=== PATIENT | female | born 1975 | race Caucasian/White ===

== ENCOUNTER 2018-08-06 16:10 | Inpatient (IN) ==
[2018-08-06 16:45] LABS: Bilirubin,Urine Negative (Negative); Blood,Urine Negative (Negative); Clarity,Urine Clear (Clear); Color,Urine Yellow (Yellow); Glucose,Urine (UA) Normal (Normal); Ketones,Urine Negative (Negative); Leukocyte Esterase,Urine Trace (Negative); Nitrite,Urine Negative (Negative); PH,Urine 5.5 pH Units (5.0-8.0); Protein,Urine >=300 mg/dL (Neg-Trace); Specific Gravity,Urine >= 1.030 (1.010-1.025); Urobilinogen,Urine Normal (Normal)
[2018-08-06 16:49] LABS: Bacteria,Urine Few per hpf (None-Few); Hyaline Casts,Urine Moderate per lpf (None-Few); Squamous Epithelial Cell,Urine Many per lpf (None-Few); WBC,Urine 15-30 per hpf (0-3)
[2018-08-06 16:58] LABS: Mucus,Urine Few (Few); RBC,Urine 0-3 per hpf (0-3)
[2018-08-06 17:05] LABS: Amphetamine Screen,Urine Negative ng/mL (Cutoff=1000); Barbiturate Screen,Urine Negative ng/mL (Cutoff=200); Benzodiazepines Screen,Urine Positive ng/mL (Cutoff=200); Cannabinoid Screen,Urine Negative ng/mL (Cutoff = 50); Cocaine Screen,Urine Negative ng/mL (Cutoff= 300); Opiate Screen,Urine Negative ng/mL (Cutoff=300); Phencyclidine Screen,Urine Negative ng/mL (Cutoff=25)
--- NOTE | 2018-08-06 17:06 | Emergency Department Note ---
Disposition Clinical Impression: Auditory hallucinations Disposition: Admitted As Inpatient Condition: Good Time of Disposition: 19:16 Psych HPI - General Chief Complaint: ED Psychiatric Symptoms Stated Complaint: SI Time Seen by Provider: 08/06/18 16:26 Source: patient Mode of arrival: ambulatory Limitations: no limitations Nursing Notes Reviewed: Yes Vital Signs Reviewed: Yes - History of Present Illness HPI Narrative: 42-year-old female presents emergency department with reports of command hallucinations. She states over the past 3 to 4 week she is been hearing voices that commander to do certain tasks. Last night they told her to drive through different states which she did through [place] and [place]. She states that have not commanded any thoughts of hurting herself or others. She denies any suicidal or homicidal ideation. She denies any self harm behavior. She states she is not taken any psychiatric medications. She does see a psychiatrist nearby at [facility] 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 Currently she is hearing voices and she states they are telling her that her body is being hacked by her DID. She is also saying that God voices telling her that she is dying. She denies any alcohol use or recreational drug abuse. She does admit to taking Valium. She reports being evaluated here at psychiatry the past. She typically is admitted at the crisis center. - Related Data Home Medications Medication Instructions Recorded Confirmed Levothyroxine [Synthroid] 188 mcg PO 0630 08/06/18 08/06/18 Allergies Allergy/AdvReac Type Severity Reaction Status Date / Time Penicillins Allergy Rash Verified 07/16/18 06:57 NSAIDS (Non-Steroidal AdvReac Hives Verified 07/16/18 06:57 Anti-Inflamma All systems ED: reviewed and negative except as stated. Review of Systems: As Per HPI Constitutional: Denies: fever, chills ENT ED: Denies: congestion Cardiovascular: Denies: chest pain Respiratory: Denies: dyspnea Gastrointestinal: Denies: abdominal pain, nausea Musculoskeletal: Denies: back pain Integumentary: Denies: rash Neurological: Denies: headache Psychiatric: Reports: anxiety, auditory hallucinations. Denies: suicidal thoughts, homicidal thoughts Endocrine: Denies: fatigue Past Medical History - Past Medical History Attestation: Yes The following information was validated with the patient. Source: patient Medical history: Reports: thyroid disease, other Surgical history: Reports: non-contributory Psychiatric history: Reports: anxiety, bipolar, PTSD, prior suicide attempt, previous psychiatric hospitalization, other FLIGHT ATTENDANT RAMP history: Reports: no FLIGHT ATTENDANT RAMP history - Social History Smoking Status: Former smoker Smokeless Tobacco Status: Yes Alcohol use: Reports: none Drug use: Reports: none Physical Exam - General Limitations: no limitations General appearance: alert, in no apparent distress, obese - Head Head exam: atraumatic, normocephalic, normal inspection - Eye Eye exam: Present: normal appearance, PERRL, EOMI - ENT ENT exam: normal exam, normal oropharynx, mucous membranes moist - Neck Neck exam: Present: normal inspection, full ROM, trachea midline - Chest Chest inspection: Present: normal inspection, symmetric chest wall rise - Respiratory Respiratory exam: Present: normal lung sounds bilaterally - Cardiovascular Cardiovascular exam: Present: regular rate, normal rhythm, normal heart sounds - Abdominal Exam Abdominal exam: Present: soft (Obese), Non-Tender. Absent: tenderness, distention, guarding, rebound, rigidity - Extremities Exam Extremities exam: Present: normal inspection, full ROM. Absent: tenderness, pedal edema - Back Exam Back exam: Present: normal inspection, full ROM. Absent: tenderness - Neurological Exam Neurological exam: Present: alert, oriented X3, normal gait - Psychiatric Psychiatric exam: Present: anxious, other (Patient has good insight) - Expanded Psychiatric Exam Expanded psych exam: Present: pressured speech, delusional, auditory hallucinations - Skin Skin exam: Present: warm, dry, intact, normal color Course Course Narrative: Patient presents with command hallucinations. No active suicidal thoughts at this time. No prior history of suicide attempt. Medical clearance and then psychiatric evaluation. - Reevaluation(s) Reevaluation #1: Patient is positive for benzodiazepine. She takes Valium. 1A psychiatry to evaluate the patient for hallucinations and delusions. Time: 17:51 - Consultations Consultation #1: Patient has been evaluated by one a psychiatry and will be admitted here at [facility] to the 1A unit. Impression is auditory hallucination and psychosis. Time: 19:16 Vital Signs Temperature 99.3 F 08/06/18 16:11 Pulse Rate 95 08/06/18 16:11 Respiratory Rate 17 08/06/18 16:11 Blood Pressure 151/87 08/06/18 16:11 O2 Sat by Pulse Oximetry 96 08/06/18 16:11 Temperature 98.2 F 08/07/18 09:00 Pulse Rate 50 08/07/18 09:00 Respiratory Rate 18 08/07/18 09:00 Blood Pressure 163/82 08/07/18 09:00 O2 Sat by Pulse Oximetry 96 08/06/18 16:32 Oxygen Delivery Oxygen Delivery Room Air Psych - MDM Narrative Medical decision making narrative: Patient was discussed with my attending physician who agrees with ED management and final disposition. They independently evaluated the patient. Please refer to their attestation to this encounter for additional information. This note was generated by [employer] recognition software and as a result grammatical or spelling errors may occur using this program. - Medical Records Medical records reviewed: Yes I reviewed the patient's medical records. - Lab Data Lab results reviewed: Yes I reviewed the patient's lab results. Result diagrams: 08/06/18 17:00 08/06/18 17:00 Lab Results 08/06/18 08/06/18 08/06/18 Range/Units 16:35 16:35 16:35 WBC (4.3-11.1) K/mcL RBC (3.82-4.97) M/mcL Hgb (11.5-15.4) g/dL Hct (35.3-44.9) % MCV (83.0-100.0) fL MCH (28.0-33.3) pg MCHC (31.6-35.5) g/dL RDW (11.5-14.5) % Plt Count (140-400) K/mcL MPV (9.4-12.4) fL Immature Gran % (0-4) % Seg Neutrophils % % Lymphocytes % % Monocytes % % Eosinophils % % Basophils % % Neutrophils # (1.6-8.9) K/mcL Lymphocytes # (0.6-4.6) K/mcL Monocytes # (0.0-1.3) K/mcL Eosinophils # (0.0-0.6) K/mcL Basophils # (0.0-0.2) K/mcL Hypochromasia (Not Present) Sodium (136-145) mEq/L Potassium (3.5-5.1) mEq/L Chloride (98-107) mEq/L Carbon Dioxide (23-29) mEq/L BUN (6-20) mg/dL Creatinine (0.60-1.20) mg/dL Est GFR ( Amer) (> 60) Est GFR (Non-Af Amer) (> 60) BUN/Creatinine Ratio (6-26) Glucose (70-105) mg/dL Calculated Osmolality (280-300) Calcium (8.6-10.3) mg/dL Urine Color Yellow (Yellow) Urine Clarity Clear (Clear) Urine pH 5.5 (5.0-8.0) pH Units Ur Specific [place] >= 1.030 H (1.010-1.025) Urine Protein >=300 H (Neg-Trace) mg/dL Urine Glucose (UA) Normal (Normal) mg/dL Urine Ketones Negative (Negative) mg/dL Urine Blood Negative (Negative) Urine Nitrite Negative (Negative) Urine Bilirubin Negative (Negative) Urine Urobilinogen Normal (Normal) mg/dL Ur Leukocyte Esterase Trace H (Negative) Urine Microscopic RBC 0-3 (0-3) per hpf Urine Microscopic WBC 15-30 H (0-3) per hpf Ur Squamous Epith Cells Many H (None-Few) per lpf Urine Bacteria Few (None-Few) per hpf Hyaline Casts Moderate H (None-Few) per lpf Urine Mucus Few (Few) Urine Yeast Test Not Performed Urine Test Negative (Negative) Salicylates (15.0-30.0) mg/dL Urine Opiates Screen Negative (Sbdqhy=473) ng/mL Acetaminophen (10-20) mcg/mL Ur Barbiturates Screen Negative (Xdlsqc=395) ng/mL Ur Phencyclidine Scrn Negative (Cutoff=25) ng/mL Ur Amphetamines Screen Negative (Uwvuiu=0385) ng/mL U Benzodiazepines Scrn Positive H (Shoxlf=772) ng/mL Urine Cocaine Screen Negative (Cutoff= 300) ng/mL U Marijuana (THC) Screen Negative (Cutoff = 50) ng/mL Ur Drug Screen Interp See Below Ethyl Alcohol (Less than 10) mg/dL 08/06/18 08/06/18 Range/Units 17:00 17:00 WBC 9.4 (4.3-11.1) K/mcL RBC 4.89 (3.82-4.97) M/mcL Hgb 10.1 L (11.5-15.4) g/dL Hct 34.1 L (35.3-44.9) % MCV 69.7 L (83.0-100.0) fL MCH 20.7 L (28.0-33.3) pg MCHC 29.6 L (31.6-35.5) g/dL RDW 16.5 H (11.5-14.5) % Plt Count 314 (140-400) K/mcL MPV 10.8 (9.4-12.4) fL Immature Gran % 0.4 (0-4) % Seg Neutrophils % 77.6 % Lymphocytes % 14.1 % Monocytes % 5.9 % Eosinophils % 1.5 % Basophils % 0.5 % Neutrophils # 7.3 (1.6-8.9) K/mcL Lymphocytes # 1.3 (0.6-4.6) K/mcL Monocytes # 0.6 (0.0-1.3) K/mcL Eosinophils # 0.1 (0.0-0.6) K/mcL Basophils # 0.1 (0.0-0.2) K/mcL Hypochromasia Present A (Not Present) Sodium 140 (136-145) mEq/L Potassium 4.0 (3.5-5.1) mEq/L Chloride 108 H (98-107) mEq/L Carbon Dioxide 25 (23-29) mEq/L BUN 9 (6-20) mg/dL Creatinine 0.94 (0.60-1.20) mg/dL Est GFR ( Amer) > 60 (> 60) Est GFR (Non-Af Amer) > 60 (> 60) BUN/Creatinine Ratio 10 (6-26) Glucose 145 H (70-105) mg/dL Calculated Osmolality 291 (280-300) Calcium 9.6 (8.6-10.3) mg/dL Urine Color (Yellow) Urine Clarity (Clear) Urine pH (5.0-8.0) pH Units Ur Specific [place] (1.010-1.025) Urine Protein (Neg-Trace) mg/dL Urine Glucose (UA) (Normal) mg/dL Urine Ketones (Negative) mg/dL Urine Blood (Negative) Urine Nitrite (Negative) Urine Bilirubin (Negative) Urine Urobilinogen (Normal) mg/dL Ur Leukocyte Esterase (Negative) Urine Microscopic RBC (0-3) per hpf Urine Microscopic WBC (0-3) per hpf Ur Squamous Epith Cells (None-Few) per lpf Urine Bacteria (None-Few) per hpf Hyaline Casts (None-Few) per lpf Urine Mucus (Few) Urine Yeast Urine Test (Negative) Salicylates < 2.5 L (15.0-30.0) mg/dL Urine Opiates Screen (Dzkokn=957) ng/mL Acetaminophen < 10 L (10-20) mcg/mL Ur Barbiturates Screen (Aaavwf=026) ng/mL Ur Phencyclidine Scrn (Cutoff=25) ng/mL Ur Amphetamines Screen (Exvxce=2125) ng/mL U Benzodiazepines Scrn (Rgozru=361) ng/mL Urine Cocaine Screen (Cutoff= 300) ng/mL U Marijuana (THC) Screen (Cutoff = 50) ng/mL Ur Drug Screen Interp Ethyl Alcohol < 10 (Less than 10) mg/dL Psychiatric Medical Clearance - Medical Clearance Checklist Medical History: No Social History Section defined Current Vitals: Last Vital Signs Temp 98.2 F 08/07/18 09:00 Pulse 50 08/07/18 09:00 Resp 18 08/07/18 09:00 BP 163/82 08/07/18 09:00 Pulse Ox 96 08/06/18 16:32 Psychiatric Lab Panel: Drug Levels and Toxicity 08/06/18 08/06/18 16:35 17:00 Urine Opiates Screen Negative Acetaminophen < 10 L Ur Barbiturates Screen Negative Ur Phencyclidine Scrn Negative Ur Amphetamines Screen Negative U Benzodiazepines Scrn Positive H Urine Cocaine Screen Negative U Marijuana (THC) Screen Negative Ethyl Alcohol < 10 Abnormal Labs: Abnormal lab results Hgb 10.1 g/dL (11.5-15.4) L 08/06/18 17:00 Hct 34.1 % (35.3-44.9) L 08/06/18 17:00 MCV 69.7 fL (83.0-100.0) L 08/06/18 17:00 MCH 20.7 pg (28.0-33.3) L 08/06/18 17:00 MCHC 29.6 g/dL (31.6-35.5) L 08/06/18 17:00 RDW 16.5 % (11.5-14.5) H 08/06/18 17:00 Hypochromasia Present (Not Present) A 08/06/18 17:00 Chloride 108 mEq/L (98-107) H 08/06/18 17:00 Glucose 145 mg/dL (70-105) H 08/06/18 17:00 Ur Specific [place] >= 1.030 (1.010-1.025) H 08/06/18 16:35 Urine Protein >=300 mg/dL (Neg-Trace) H 08/06/18 16:35 Ur Leukocyte Esterase Trace (Negative) H 08/06/18 16:35 Urine Microscopic WBC 15-30 per hpf (0-3) H 08/06/18 16:35 Ur Squamous Epith Cells Many per lpf (None-Few) H 08/06/18 16:35 Hyaline Casts Moderate per lpf (None-Few) H 08/06/18 16:35 Salicylates < 2.5 mg/dL (15.0-30.0) L 08/06/18 17:00 Acetaminophen < 10 mcg/mL (10-20) L 08/06/18 17:00 U Benzodiazepines Scrn Positive ng/mL (Dhcyhw=691) H 08/06/18 16:35 Attestation Statement - Attestation Attestation: I, Jhonathan Lutz, examined this patient and my medical decision-making was reviewed with the INTERNATIONAL LOGISTICS MANAGER/PA/Advanced Practice Nurse/Resident Physician. I agree with the documented findings, disposition and treatment plan as described except to the extent set forth below. 42-year-old female presents emergency Department with concerns of command hallucinations. Patient states she has a history of command hallucinations however they have become much more forceful. They told her to drive to [place] and [place] which she states she did without hesitation. Patient also noted that she thought "God had told her to stop multiple times while driving". Patient states she has multiple personalities which sometimes "take over". She denies HI or SI. She states she is currently having command auditory hallucinations in the emergency department. Patient will be medically cleared and evaluated by behavioral health.
[2018-08-06 17:12] LABS: Mean Platelet Volume 10.8 fL (9.4-12.4)
[2018-08-06 17:13] LABS: Basophils # 0.1 K/mcL (0.0-0.2); Basophils % 0.5 %; Eosinophils # 0.1 K/mcL (0.0-0.6); Eosinophils % 1.5 %; Hematocrit 34.1 % (35.3-44.9); Hemoglobin 10.1 g/dL (11.5-15.4); Immature Granulocytes % 0.4 % (0-4); Lymphocytes # 1.3 K/mcL (0.6-4.6); Lymphocytes % 14.1 %; Mean Corpuscular HGB Conc 29.6 g/dL (31.6-35.5); Mean Corpuscular Hemoglobin 20.7 pg (28.0-33.3); Mean Corpuscular Volume 69.7 fL (83.0-100.0); Monocytes # 0.6 K/mcL (0.0-1.3); Monocytes % 5.9 %; Neutrophils # 7.3 K/mcL (1.6-8.9); Platelet Count 314 K/mcL (140-400); Red Blood Count 4.89 M/mcL (3.82-4.97); Red Cell Distribution Width 16.5 % (11.5-14.5); Segmented Neutrophils % 77.6 %
[2018-08-06] MEDS ORDERED: Nicotine 21 MG PATCH.TD24 TD ONE (17:28)
[2018-08-06 17:33] LABS: Acetaminophen < 10 mcg/mL (10-20); BUN/Creatinine Ratio 10 (6-26); Blood Urea Nitrogen 9 mg/dL (6-20); Calcium 9.6 mg/dL (8.6-10.3); Carbon Dioxide 25 mEq/L (23-29); Chloride 108 mEq/L (98-107); Ethanol < 10 mg/dL (Less than 10); Glucose 145 mg/dL (70-105); Osmolality,Calculated 291 (280-300); Salicylate < 2.5 mg/dL (15.0-30.0); Sodium 140 mEq/L (136-145); eGFR For Non-African Americans > 60 (> 60)
[2018-08-06 17:34] LABS: Hypochromasia Present (Not Present)
[2018-08-06] MEDS ORDERED: *HR* LORazepam 0.5 MG TABLET PO ONE (17:59)
[2018-08-06] MEDS ORDERED: Ibuprofen 400 MG TABLET PO PRN (20:33)
[2018-08-06] MEDS ORDERED: *HR* LORazepam 2 MG/ML VIAL IM PRN (20:33)
[2018-08-06] MEDS ORDERED: Mag Hydrox/Al Hydrox/Simeth 30 ML UDC PO PRN (20:33)
[2018-08-06] MEDS ORDERED: Haloperidol Lactate 5 MG/ML VIAL IM PRN (20:33)
[2018-08-06] MEDS ORDERED: MOM Conc 10 ML UD.LIQ PO PRN (20:33)
[2018-08-06] MEDS: *HR* LORazepam 1 MG TABLET PO PRN (21:17)
[2018-08-07] MEDS: Nicotine 21 MG PATCH.TD24 TD SCH ×2 (09:38→10:05)
--- NOTE | 2018-08-07 11:44 | Psychiatry History & Physical ---
Date of Encounter: 08/07/18 Time of Encounter: 11:02 History of Present Illness Patient Stated Chief Complaint: i am not on any psych meds for 1 year. Medicare Admission Attestation: For traditional Medicare patients the provided hospital inpatient services are reasonable and necessary and in the case of services not specified as inpatient -only under 42 CFR 419.22 (n), that they are appropriately provided as inpatient services in accordance 42 CFR 412.3. For Critical Access Hospital the patient may reasonably be expected to be discharged or transferred to a hospital within 96 hours after admission to the Critical Access Hospital. Admitted From: Emergency Dept Plans for Post Hospital Care: Home History of Present Illness: Ms. Mcconnell is a 42 year old female 42-year-old female presents emergency department with reports of command hallucinations. She states over the past 3 to 4 week she is been hearing voices that commander to do certain tasks. Last night they told her to drive through different states which she did through [place] and [place]. She states that have not commanded any thoughts of hurting herself or others. She denies any suicidal or homicidal ideation. She denies any self harm behavior. She states she is not taken any psychiatric medications. She does [place] a psychiatrist [place] 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 Currently she is hearing voices and she states they are telling her that her body is being hacked by her DID. She is also saying that God voices telling her that she is dying. She denies any alcohol use or recreational drug abuse. She does admit to taking Valium. . HPI : patient seen today , morbidly obese , dishelved and unkempt with h/o Bipolar/PTSD/OCD/DID. At present during our session she told me to look at her and see that she is writing automatically , she wrote we are 28 we all want to intergrate, and has been writing what voices are telling her. she is internally preoccupied and admits to auditory hallucination, no visual hallucination, delusional both grandiose , states they put me in hallucinogenis phase and also sensory hallucinogen, God was talking to me and God taking my soul and i will have seizure and i thought i was dying. Remains psychotic and stating me the donaldo is pretty darn and lucid , thoughts keep repeating like broken records. she has stopped her medication one year ago states i was feeling good and stopped as usual but goes to counselling religiously. Past Psych: this is her second inpatient in a month , was there for depression and si. she has h/o menatl illness as per her whole life , h/o non compliance does not remember meds she was taking. Medical : obeses, none other as per her. Substance use : none current sober for 8 months before alcohol . denies streest drugs. Family h/o : unknown. Social lives by herself , has one daughter , 21 , not in touch with her. A/p Bipolar affective disorder manic with psychotic features PTSD Admit to inpatient as patient responding to commanding hallucination and has been off her medication. Past Med Surg Social Fam HX - Past Medical History Medical history: thyroid disease, other - Past Psychiatric History Psychiatric history: Reports: anxiety, bipolar, prior suicide attempt, previous psychiatric hospitalization Family psychiatric history: Unknown Family History of Suicide: None - Past Surgical History Surgical History: non-contributory - Social History Smoking Status: Former smoker Smokeless Tobacco Status: Yes Alcohol use: none Drug use: none - Family History Mother Hx Family Cardiac Disorders: Yes (htn) Hx Family Cancer: Yes (skin, breast, cervical) Father Hx Family Cardiac Disorders: Yes (arrythmia , htn) Medications & Allergies Levothyroxine [Synthroid] 188 mcg PO 0630 08/06/18 [History] 3 Allergy/AdvReac Type Severity Reaction Status Date / Time Penicillins Allergy Rash Verified 07/16/18 06:57 NSAIDS (Non-Steroidal AdvReac Hives Verified 07/16/18 06:57 Anti-Inflamma Review of Systems Constitutional: Denies: fever, chills, weakness, weight change Eyes: Denies: eye pain, vision change Ears, Nose, Throat: Denies: ear pain, throat pain, dental pain, hearing loss, congestion Cardiovascular: Denies: chest pain, palpitations, dyspnea on exertion Respiratory: Denies: cough, dyspnea, wheezes Gastrointestinal: Denies: abdominal pain, nausea, vomiting, diarrhea, constipation Genitourinary female: Denies: urgency, dysuria, frequency, abnormal menses, dyspareunia Musculoskeletal: Denies: joint swelling, joint pain Integumentary: Denies: rash, lesions, pruritus Neurological: Denies: headache, weakness, numbness, memory loss Psychiatric: Reports: abnormal sleep pattern, change in appetite, auditory hallucinations, difficulty concentrating, mood swings Endocrine: Denies: fatigue, heat or cold intolerance Hematologic/Lymphatic: Denies: easy bruising, lymphadenopathy Allergic/Immunologic: Denies: urticaria, itchy eyes Exam - HEENT Head exam IM: Present: atraumatic Eye exam IM: Present: EOMI, normal appearance, PERRL ENT exam IM: Present: normal exam - Neurological Neurological exam: Present: CN II-XII intact - Respiratory Respiratory exam IM: Present: CTAB - GI/Abdominal GI/Abdominal exam IM: Present: normal bowel sounds, soft. Absent: tenderness - Extremities Extremities exam IM: Present: full ROM - Skin Skin exam IM: Present: dry, warm - Constitutional Vitals: Temp Pulse Resp BP Pulse Ox 98.2 F 50 18 163/82 96 08/07/18 09:00 08/07/18 09:00 08/07/18 09:00 08/07/18 09:00 08/06/18 16:32 General appearance: unkempt, disheveled, malodorous - Musculoskeletal Gait: normal Station: relaxed Strength & Tone: normal for patient - Psychiatric Patient Orientation: Yes Person, Yes Time, Yes Place Level of alertness: Alert Behavior: calm, cooperative Psychomotor activity: Normal Eye Contact: Maintains Eye Contact Mood Description: Euphoric Affect description: congruent with mood Speech Volume: Normal Speech pattern: excessive Language & Vocabulary: consistent with education Thought Process: Linear, Goal Oriented, Circumstantial, Flight of Ideas, Racing Thought Content: No Suicidal ideation, No Homicidal ideation, No Overt delusions , Yes Preoccupation, Yes Hoahaoism delusion, Yes Grandiose delusion, Yes Somatic delusion Perceptual Disturbances: Yes Reacting to internal stimuli, Yes Auditory hallucinations Attention Span Ability: Unable to Sustain Attention Memory Description: Grossly Intact Patient Reliability: Reliable Historian Fund of knowledge: Yes average Intelligence Estimate: Average Judgment: Limited Insight: Minimal Results - Labs Labs: Laboratory Last Values WBC 9.4 K/mcL (4.3-11.1) 08/06/18 17:00 RBC 4.89 M/mcL (3.82-4.97) 08/06/18 17:00 Hgb 10.1 g/dL (11.5-15.4) L 08/06/18 17:00 Hct 34.1 % (35.3-44.9) L 08/06/18 17:00 MCV 69.7 fL (83.0-100.0) L 08/06/18 17:00 MCH 20.7 pg (28.0-33.3) L 08/06/18 17:00 MCHC 29.6 g/dL (31.6-35.5) L 08/06/18 17:00 RDW 16.5 % (11.5-14.5) H 08/06/18 17:00 Plt Count 314 K/mcL (140-400) 08/06/18 17:00 MPV 10.8 fL (9.4-12.4) 08/06/18 17:00 Immature Gran % 0.4 % (0-4) 08/06/18 17:00 Seg Neutrophils % 77.6 % 08/06/18 17:00 Lymphocytes % 14.1 % 08/06/18 17:00 Monocytes % 5.9 % 08/06/18 17:00 Eosinophils % 1.5 % 08/06/18 17:00 Basophils % 0.5 % 08/06/18 17:00 Neutrophils # 7.3 K/mcL (1.6-8.9) 08/06/18 17:00 Lymphocytes # 1.3 K/mcL (0.6-4.6) 08/06/18 17:00 Monocytes # 0.6 K/mcL (0.0-1.3) 08/06/18 17:00 Eosinophils # 0.1 K/mcL (0.0-0.6) 08/06/18 17:00 Basophils # 0.1 K/mcL (0.0-0.2) 08/06/18 17:00 Hypochromasia Present (Not Present) A 08/06/18 17:00 Sodium 140 mEq/L (136-145) 08/06/18 17:00 Potassium 4.0 mEq/L (3.5-5.1) 08/06/18 17:00 Chloride 108 mEq/L (98-107) H 08/06/18 17:00 Carbon Dioxide 25 mEq/L (23-29) 08/06/18 17:00 BUN 9 mg/dL (6-20) 08/06/18 17:00 Creatinine 0.94 mg/dL (0.60-1.20) 08/06/18 17:00 Est GFR ( Amer) > 60 (> 60) 08/06/18 17:00 Est GFR (Non-Af Amer) > 60 (> 60) 08/06/18 17:00 BUN/Creatinine Ratio 10 (6-26) 08/06/18 17:00 Glucose 145 mg/dL (70-105) H 08/06/18 17:00 Calculated Osmolality 291 (280-300) 08/06/18 17:00 Calcium 9.6 mg/dL (8.6-10.3) 08/06/18 17:00 Urine Color Yellow (Yellow) 08/06/18 16:35 Urine Clarity Clear (Clear) 08/06/18 16:35 Urine pH 5.5 pH Units (5.0-8.0) 08/06/18 16:35 Ur Specific [place] >= 1.030 (1.010-1.025) H 08/06/18 16:35 Urine Protein >=300 mg/dL (Neg-Trace) H 08/06/18 16:35 Urine Glucose (UA) Normal mg/dL (Normal) 08/06/18 16:35 Urine Ketones Negative mg/dL (Negative) 08/06/18 16:35 Urine Blood Negative (Negative) 08/06/18 16:35 Urine Nitrite Negative (Negative) 08/06/18 16:35 Urine Bilirubin Negative (Negative) 08/06/18 16:35 Urine Urobilinogen Normal mg/dL (Normal) 08/06/18 16:35 Ur Leukocyte Esterase Trace (Negative) H 08/06/18 16:35 Urine Microscopic RBC 0-3 per hpf (0-3) 08/06/18 16:35 Urine Microscopic WBC 15-30 per hpf (0-3) H 08/06/18 16:35 Ur Squamous Epith Cells Many per lpf (None-Few) H 08/06/18 16:35 Urine Bacteria Few per hpf (None-Few) 08/06/18 16:35 Hyaline Casts Moderate per lpf (None-Few) H 08/06/18 16:35 Urine Mucus Few (Few) 08/06/18 16:35 Urine Yeast Test Not Performed 10/02/18 16:35 Urine Test Negative (Negative) 08/06/18 16:35 Salicylates < 2.5 mg/dL (15.0-30.0) L 08/06/18 17:00 Urine Opiates Screen Negative ng/mL (Hswetg=111) 08/06/18 16:35 Acetaminophen < 10 mcg/mL (10-20) L 08/06/18 17:00 Ur Barbiturates Screen Negative ng/mL (Pevtck=270) 08/06/18 16:35 Ur Phencyclidine Scrn Negative ng/mL (Cutoff=25) 08/06/18 16:35 Ur Amphetamines Screen Negative ng/mL (Ueawvn=6474) 08/06/18 16:35 U Benzodiazepines Scrn Positive ng/mL (Mwydgj=308) H 08/06/18 16:35 Urine Cocaine Screen Negative ng/mL (Cutoff= 300) 08/06/18 16:35 U Marijuana (THC) Screen Negative ng/mL (Cutoff = 50) 08/06/18 16:35 Ur Drug Screen Interp See Below 08/06/18 16:35 Ethyl Alcohol < 10 mg/dL (Less than 10) 08/06/18 17:00 Assessment and Plan (1) Bipolar disorder Current visit: No Status: Acute Plan: Admit inpatient for safety and stabilization, Close observation, Suicide Precautions per unit protocol, Encourage participation in unit milieu, Group Therapy, Monitor sleep, Monitor appetite, Secure weapons, Family/Supportive other meeting Risks, benefits, side effects, alternatives discussed w/pt: Yes Patient agreeable to treatment: Yes Plans for Post Hospital Care: at Home Qualifiers: Active/Remission status: currently active Current episode severity: severe Psychotic features: with psychotic features Qualified Code(s): F31.2 - Bipolar disorder, current episode manic severe with psychotic features
[2018-08-07] MEDS: hydrOXYzine pamoate 25 MG CAPSULE PO PRN ×2 (17:08→20:30)
[2018-08-08] MEDS: Nicotine 21 MG PATCH.TD24 TD SCH (08:39)
[2018-08-08] MEDS: hydrOXYzine pamoate 25 MG CAPSULE PO PRN ×2 (10:07→16:40)
--- NOTE | 2018-08-08 12:45 | Psychiatry Progress Note ---
Date of Encounter: 08/08/18 Time of Encounter: 12:02 Subjective Interval history: Patient seen today , case d/w treatment team , states i have racing thoughts , there is lot going in my head , she shweta picture of people she is hearing and in her mind , is Sydney who is 4 and is most talkative and there is GOD is 6 years old , they call themselves GOd. She remains delusional and hearing voices and is doing what they are telling her to do , they are nice now , she is not suicidal /homicidal but preoccupied and responding to her thoughts and hallucination. she feels agitated but denies violence. she stated risperdal and topamax did best for her and medication have been started. side effects exp to patient. she had bad reaction to depakote and lithium Review of Systems Psychiatric: Reports: abnormal sleep pattern, change in appetite, auditory hallucinations, difficulty concentrating, mood swings Results - Vital Signs Vital Signs: Temp Pulse Resp BP Pulse Ox 98.1 F 99 18 138/83 96 08/08/18 09:00 08/08/18 09:00 08/08/18 09:00 08/08/18 09:00 08/06/18 16:32 Assessment and Plan (1) Bipolar disorder Current visit: No Status: Acute Plan: Continue hospitalization, Close observation, Suicide Precautions per unit protocol, Encourage participation in unit milieu, Group Therapy, Monitor sleep, Monitor appetite, Secure weapons, Family/Supportive other meeting Risks, benefits, side effects, alternatives discussed w/pt: Yes Patient agreeable to treatment: Yes Qualifiers: Active/Remission status: currently active Current episode severity: severe Psychotic features: with psychotic features Qualified Code(s): F31.2 - Bipolar disorder, current episode manic severe with psychotic features Consult Discharge Plan - Plan Referrals: NONE,PCP [Primary Care Provider] - Psychiatry Exam - Constitutional Vitals: Temp Pulse Resp BP Pulse Ox 98.1 F 99 18 138/83 96 08/08/18 09:00 08/08/18 09:00 08/08/18 09:00 08/08/18 09:00 08/06/18 16:32 General appearance: average - Musculoskeletal Gait: normal Station: other Strength & Tone: normal for patient - Psychiatric Patient Orientation: Yes Person, Yes Time, Yes Place Level of alertness: Alert Behavior: cooperative, talkative Psychomotor activity: Normal Eye Contact: Maintains Eye Contact Mood Description: Elevated, Euphoric Affect description: euphoric Speech Volume: Loud Speech pattern: excessive Language & Vocabulary: consistent with education Thought Process: Circumstantial Thought Content: Yes Preoccupation, Yes Grandiose delusion Perceptual Disturbances: Yes Auditory hallucinations Attention Span Ability: Unable to Sustain Attention Memory Description: Grossly Intact Patient Reliability: Reliable Historian Intelligence Estimate: Average Judgment: Limited Insight: Partial
[2018-08-08] MEDS: Topiramate 25 MG TABLET PO SCH ×2 (14:18→20:57)
[2018-08-08] MEDS: *HR* LORazepam 1 MG TABLET PO PRN (16:44)
[2018-08-08] MEDS ORDERED: Topiramate 25 MG TABLET PO SCH (21:00)
[2018-08-08] MEDS ORDERED: risperiDONE 1 MG TABLET PO SCH (21:00)
[2018-08-09] MEDS: Topiramate 25 MG TABLET PO SCH ×2 (08:44→21:17)
[2018-08-09] MEDS: Nicotine 21 MG PATCH.TD24 TD SCH (08:44)
--- NOTE | 2018-08-09 11:17 | Psychiatry Progress Note ---
Date of Encounter: 08/09/18 Time of Encounter: 10:22 Subjective Interval history: Patient seen today ,case d/w treatment team. She was given prn medication last night for severe anxiety , and was pacing and not able to relax. She was started on risperdal , topamax , she also took seroquel as was not able to sleep. she states i am feling little better today but i am drowsy because of all the medicine i took last night. i am happy as i am getting my appetite back as i was not eating much. voices are there , they are not going any where , but they are becoming nice now and not playing games with me. she still remains psychotic , will increase risperdal to 2 mg hs and benztropine to 1 mg hs. contiue stabilization. Review of Systems Psychiatric: Reports: abnormal sleep pattern, change in appetite, auditory hallucinations, difficulty concentrating, mood swings Results - Vital Signs Vital Signs: Temp Pulse Resp BP Pulse Ox 98.3 F 71 18 142/82 96 08/09/18 09:58 08/09/18 09:58 08/09/18 09:58 08/09/18 09:58 08/06/18 16:32 Assessment and Plan (1) Bipolar disorder Current visit: No Status: Acute Risks, benefits, side effects, alternatives discussed w/pt: Yes Patient agreeable to treatment: Yes Qualifiers: Active/Remission status: currently active Current episode severity: severe Psychotic features: with psychotic features Qualified Code(s): F31.2 - Bipolar disorder, current episode manic severe with psychotic features Consult Discharge Plan - Plan Referrals: Singh Villaseñor [Outside] - 08/14/18 6:00 pm (The above appointment is with Kalpana Molina for outpatient mental health counseling services. You will see her again on 08/21/2018 at 6:00 PM, 08/28/2018 at 6:00 PM and 09/04/2018 at 6:00 PM. You will also see Anton Gibbs on 2017 at 1:25 PM for outpatient psychiatric assessment and medication management services.) Psychiatry Exam - Constitutional Vitals: Temp Pulse Resp BP Pulse Ox 98.3 F 71 18 142/82 96 08/09/18 09:58 08/09/18 09:58 08/09/18 09:58 08/09/18 09:58 08/06/18 16:32 General appearance: obese - Musculoskeletal Gait: normal Station: other Strength & Tone: normal for patient - Psychiatric Patient Orientation: Yes Person, Yes Time, Yes Place Level of alertness: Alert Behavior: cooperative, talkative Psychomotor activity: Normal Eye Contact: Maintains Eye Contact Mood Description: Depressed, Anxious Affect description: congruent with mood Speech Volume: Normal Speech pattern: coherent Language & Vocabulary: consistent with education Thought Process: Circumstantial Thought Content: Yes Preoccupation Perceptual Disturbances: Yes Auditory hallucinations Attention Span Ability: Capable of Focused Attention Memory Description: Grossly Intact Patient Reliability: Reliable Historian Fund of knowledge: Yes average Intelligence Estimate: Average Judgment: Limited Insight: Partial
[2018-08-09] MEDS: hydrOXYzine pamoate 25 MG CAPSULE PO PRN ×2 (13:28→23:09)
[2018-08-09] MEDS: *HR* LORazepam 1 MG TABLET PO PRN (18:53)
[2018-08-09] MEDS ORDERED: risperiDONE 1 MG TABLET PO SCH (21:00)
[2018-08-10] MEDS: Topiramate 25 MG TABLET PO SCH (09:29)
[2018-08-10] MEDS: Nicotine 21 MG PATCH.TD24 TD SCH (09:30)
--- NOTE | 2018-08-10 10:29 | Discharge Summary ---
Date of Encounter: 08/10/18 Time of Encounter: 10:30 Diagnosis - Discharge Diagnosis (1) Bipolar disorder Status: Acute Qualifiers: Active/Remission status: currently active Current bipolar episode type: manic Current episode severity: severe Psychotic features: with psychotic features Qualified Code(s): F31.2 - Bipolar disorder, current episode manic severe with psychotic features Medications - Discharge Medications Prescriptions: Benztropine [Cogentin] 1 mg PO HS #30 tablet Quetiapine Fumarate [Seroquel] 50 mg PO HS PRN #60 tablet PRN Reason: Insomnia risperiDONE [RisperDAL] 2 mg PO HS #60 tablet Topiramate [Topamax] 25 mg PO BID #60 tablet Levothyroxine [Synthroid] [place] [address]/06/18 [History] Benztropine [Cogentin] 1 mg PO HS #30 tablet 08/10/18 [Rx] Quetiapine Fumarate [Seroquel] 50 mg PO HS PRN #60 tablet 08/10/18 [Rx] Topiramate [Topamax] 25 mg PO BID #60 tablet 08/10/18 [Rx] risperiDONE [RisperDAL] 2 mg PO HS #60 tablet 08/10/18 [Rx] 3 Allergy/AdvReac Type Severity Reaction Status Date / Time Penicillins Allergy Rash Verified 07/16/18 06:57 NSAIDS (Non-Steroidal AdvReac Hives Verified 07/16/18 06:57 Anti-Inflamma Provider Date of admission: 08/06/18 23:51 Primary care physician: PCP NONE Discharging clinician: Reema Guzman Psychiatry Exam - Constitutional Vitals: Temp Pulse Resp BP Pulse Ox 99.6 F 60 14 143/80 96 08/09/18 21:00 08/09/18 21:00 08/09/18 21:00 08/09/18 21:00 08/06/18 16:32 General appearance: age & developmentally appropriate, well-groomed, well- nourished - Musculoskeletal Gait: normal Station: relaxed Strength & Tone: normal for patient - Psychiatric Patient Orientation: Yes Person, Yes Time, Yes Place Level of alertness: Alert Behavior: calm, cooperative Psychomotor activity: Normal Eye Contact: Maintains Eye Contact Mood Description: Euthymic/stable Affect description: congruent with mood, full range Speech Volume: Normal Speech pattern: normal rate, normal rhythm, normal tone, fluent, spontaneous Language & Vocabulary: consistent with education Thought Process: Linear, Goal Oriented Thought Content: No Suicidal ideation, No Homicidal ideation, No Overt delusions Perceptual Disturbances: No Auditory hallucinations, No Visual hallucinations Attention Span Ability: Capable of Focused Attention Memory Description: Grossly Intact Patient Reliability: Reliable Historian Fund of knowledge: Yes abstraction ability, Yes aware of current events Intelligence Estimate: Average Judgment: Fair Insight: Partial Hospital Course Hospital course: Ms. Mcconnell is a 42 year old female who was admitted for complaints of psychosis. Today client reports all of her symptoms have resolved except for racing thoughts. Thinks she had a manic episode. Does not appear manic today. Calm, cooperative. Thoughts organized and linear. No evidence of psychosis. Denies SI/HI. No meds at time of admission but now feels stable on current regimen. Has intake appointment for medication management on September 05. Already linked with a counselor. Lives independently. Drove self here. Client reports she feels "completely safe" to go home. - Time Spent with Patient Total time spent providing and/or coordinating discharge services: Assessment and Plan - Patient/Caregiver Discharge Instructions Activity: resume usual activities as tolerated Diet: regular diet - Follow up Plan Follow up with: Singh Villaseñor [Outside] - 08/14/18 6:00 pm (The above appointment is with Kalpana Molina for outpatient mental health counseling services. You will see her again on 08/21/2018 at 6:00 PM, 08/28/2018 at 6:00 PM and 09/04/2018 at 6:00 PM. You will also see Sridharirmabrittany Sai on 2017 at 1:25 PM for outpatient psychiatric assessment and medication management services.) Functional capacity at discharge: independent ambulation Overall status at discharge: Stable Disposition: Home, Self-Care Quality - Multiple Antipsychotics Patient discharged on 2 or more antipsychotic medications: No Procedures - Procedures Procedures: Medication Management, Crisis Stabilization, Supportive Therapy, Group Therapy
[2018-08-10 11:12] VITALS: BP 132/84
== END 2018-08-10 12:50 | disposition home or self-care (01) | DRG 885 ==
LOC: 1ANU 16:10 → EMEROOARM 16:10 → 1ANU 20:13
PROVIDERS: ADMIT Psychiatry & Neurology Psychiatry; ATTEND Psychiatry & Neurology Psychiatry

== ENCOUNTER 2018-11-17 16:36 | Inpatient (IN) ==
--- NOTE | 2018-11-17 17:18 | Emergency Department Note ---
Disposition Clinical Impression: Auditory hallucinations, Dissociative identity disorder Depression Qualifiers: Depression Type: unspecified Qualified Code(s): F32.9 - Major depressive disorder, single episode, unspecified Bipolar disorder Qualifiers: Active/Remission status: remission status unspecified Qualified Code(s): F31.9 - Bipolar disorder, unspecified Disposition: Admitted As Inpatient Condition: Fair Referrals: NONE,PCP [Primary Care Provider] - Forms: ED Satisfaction Letter Time of Disposition: 20:35 General Adult HPI - General Chief complaint: ED Psychiatric Symptoms Stated complaint: Psych Eval Time Seen by Provider: 11/17/18 17:01 Source: patient Limitations: no limitations - History of Present Illness HPI Narrative: Ms Mcconnell is a 42yo female who is here with the chief complaint of her dissociative identiy disorder getting worse. She states that she has a six year old child living inside of her and that when she is alone she talks to herself as the 6yo child and "the voice inside her head" is a 6yo child. She states that she has also has a 12yo girl inside of her, her name is Soha. Soha and the 6yo child have been arguing with each other and have been telling Briana that they hate her. Ms Mcconnell states that she currently has no SI/HI but that the auditory hallucinations have been getting more intense and worse in frequency. She denies that they are command hallucinations. Her brain "shorted out" and she needs to get this sorted out. She denies any chest pain, SOB, N/V/D, abd pain, or headache. Pt Subjective Complaint: there is a 6yr old child living inside of me Pain Scale: 1 - Related Data Home Medications Medication Instructions Recorded Confirmed Levothyroxine [Synthroid] 188 mcg PO 0630 08/06/18 08/06/18 Previous Rx's Medication Instructions Recorded Benztropine [Cogentin] 1 mg PO HS #30 tablet 08/10/18 Quetiapine Fumarate [Seroquel] 50 mg PO HS PRN #60 tablet 08/10/18 Topiramate [Topamax] 25 mg PO BID #60 tablet 08/10/18 risperiDONE [RisperDAL] 2 mg PO HS #60 tablet 08/10/18 Allergies Allergy/AdvReac Type Severity Reaction Status Date / Time Penicillins Allergy Rash Verified 11/14/18 21:20 NSAIDS (Non-Steroidal AdvReac Hives Verified 11/14/18 21:20 Anti-Inflamma Constitutional: Denies: fever Eyes: Denies: vision change ENT ED: Denies: congestion Cardiovascular: Denies: chest pain, palpitations Respiratory: Denies: cough Gastrointestinal: Denies: abdominal pain, nausea Genitourinary: Denies: urgency Musculoskeletal: Denies: back pain Integumentary: Denies: rash Neurological: Denies: headache Psychiatric: Reports: anxiety, depression, auditory hallucinations. Denies: suicidal thoughts, homicidal thoughts, visual hallucinations Endocrine: Denies: fatigue Hematological/Lymphatic: Denies: easy bleeding Past Medical History - Past Medical History Medical history: Reports: thyroid disease, other Surgical history: Reports: non-contributory Psychiatric history: Reports: anxiety, bipolar, prior suicide attempt, previous psychiatric hospitalization SEALER DRY CELL history: Reports: no SEALER DRY CELL history - Social History Smoking Status: Current every day smoker Smokeless Tobacco Status: Yes Alcohol use: Reports: none Drug use: Reports: none Physical Exam - General Limitations: no limitations General appearance: alert, anxious, other (female pt sitting in bed comfortably, speaking in full sentences without respiratory distress) - Head Head exam: atraumatic, normocephalic, normal inspection - Eye Eye exam: Absent: scleral icterus - ENT ENT exam: mucous membranes moist - Neck Neck exam: Present: trachea midline - Chest Chest inspection: Present: symmetric chest wall rise - Respiratory Respiratory exam: Present: normal lung sounds bilaterally. Absent: respiratory distress, wheezes, stridor, accessory muscle use - Cardiovascular Cardiovascular exam: Present: regular rate, normal rhythm, +S1, +S2. Absent: rubs, gallop, clicks, JVD - Abdominal Exam Abdominal exam: Present: soft, Non-Tender. Absent: distention, guarding, re bound, rigidity - Extremities Exam Extremities exam: Present: normal inspection, normal capillary refill. Absent: pedal edema - Neurological Exam Neurological exam: Present: alert, oriented X3 - Psychiatric Psychiatric exam: Present: anxious - Skin Skin exam: Present: warm, dry Course Course Narrative: Ms Mcconnell is a 42yo female who is here with the chief complaint of her dissociative identiy disorder getting worse. She states that she has a six year old child living inside of her and that when she is alone she talks to herself as the 6yo child and "the voice inside her head" is a 6yo child. The auditory hallucinations have gotten more intense in frequency. She is frightened that her brain 'shorted out." She will have a psych clearance workup and 1A evaluation will be placed. Dispo pending depending on psych evaluation. - Reevaluation(s) Reevaluation #1: 1A called at 645pm Reevaluation #2: 1A accepted the pt. She will be moved to the psych [facility]. Time: 20:34 Vital Signs Temperature 98.8 F 11/17/18 16:44 Pulse Rate 86 11/17/18 16:44 Respiratory Rate 18 11/17/18 16:44 Blood Pressure 158/94 11/17/18 16:44 O2 Sat by Pulse Oximetry 96 11/17/18 16:44 Temperature 98.8 F 11/17/18 16:44 Pulse Rate 86 11/17/18 16:44 Respiratory Rate 18 11/17/18 16:44 Blood Pressure 158/94 11/17/18 16:44 O2 Sat by Pulse Oximetry 96 11/17/18 16:44 Oxygen Delivery Oxygen Delivery Room Air Medical Decision Making - MDM Narrative Medical decision making narrative: Ms Mcconnell is a 42yo female who is here with the chief complaint of her dissociative identiy disorder getting worse. She states that she has a six year old child living inside of her and that when she is alone she talks to herself as the 6yo child and "the voice inside her head" is a 6yo child. She had medical clearance for psych evaluation, which was all negative for acute process. Hemoglobin was noted to be 9.8, which appears around baseline of 10. 1A evaluated the pt and accepted the admission. She is currently medically stable. - Medical Records Medical records reviewed: Yes I reviewed the patient's medical records. - Lab Data Lab results reviewed: Yes I reviewed the patient's lab results. Result diagrams: 11/17/18 17:30 11/17/18 17:30 Lab Results 11/17/18 11/17/18 11/17/18 Range/Units 17:30 17:30 18:05 WBC 8.9 (4.3-11.1) K/mcL RBC 4.73 (3.82-4.97) M/mcL Hgb 9.8 L (11.5-15.4) g/dL Hct 33.2 L (35.3-44.9) % MCV 70.2 L (83.0-100.0) fL MCH 20.7 L (28.0-33.3) pg MCHC 29.5 L (31.6-35.5) g/dL RDW 16.5 H (11.5-14.5) % Plt Count 325 (140-400) K/mcL MPV 10.6 (9.4-12.4) fL Immature Gran % 0.5 (0-4) % Seg Neutrophils % 71.0 % Lymphocytes % 18.6 % Monocytes % 7.1 % Eosinophils % 2.1 % Basophils % 0.7 % Neutrophils # 6.3 (1.6-8.9) K/mcL Lymphocytes # 1.7 (0.6-4.6) K/mcL Monocytes # 0.6 (0.0-1.3) K/mcL Eosinophils # 0.2 (0.0-0.6) K/mcL Basophils # 0.1 (0.0-0.2) K/mcL Sodium 139 (136-145) mEq/L Potassium 3.8 (3.5-5.1) mEq/L Chloride 105 (98-107) mEq/L Carbon Dioxide 26 (23-29) mEq/L BUN 9 (6-20) mg/dL Creatinine 0.80 (0.60-1.20) mg/dL Est GFR ( Amer) > 60 (> 60) Est GFR (Non-Af Amer) > 60 (> 60) BUN/Creatinine Ratio 11 (6-26) Glucose 91 (70-105) mg/dL Calculated Osmolality 286 (280-300) Calcium 9.1 (8.6-10.3) mg/dL Urine Color Yellow (Yellow) Urine Clarity Clear (Clear) Urine pH 6.5 (5.0-8.0) pH Units Ur Specific [place] 1.008 L (1.010-1.025) Urine Protein Trace (Neg-Trace) mg/dL Urine Glucose (UA) Normal (Normal) mg/dL Urine Ketones Negative (Negative) mg/dL Urine Blood Negative (Negative) Urine Nitrite Negative (Negative) Urine Bilirubin Negative (Negative) Urine Urobilinogen Normal (Normal) mg/dL Ur Leukocyte Esterase Trace H (Negative) Urine Microscopic RBC 3-5 H (0-3) per hpf Urine Microscopic WBC 3-5 H (0-3) per hpf Ur Squamous Epith Cells Moderate H (None-Few) per lpf Urine Bacteria None Seen (None-Few) per hpf Hyaline Casts None Seen (None-Few) per lpf Salicylates < 2.5 L (15.0-30.0) mg/dL Urine Opiates Screen (Mccxzp=097) ng/mL Acetaminophen < 10 L (10-20) mcg/mL Ur Barbiturates Screen (Lhapcl=734) ng/mL Ur Phencyclidine Scrn (Cutoff=25) ng/mL Ur Amphetamines Screen (Qrhqzb=1241) ng/mL U Benzodiazepines Scrn (Nzrdnj=077) ng/mL Urine Cocaine Screen (Cutoff= 300) ng/mL U Marijuana (THC) Screen (Cutoff = 50) ng/mL Ur Drug Screen Interp Ethyl Alcohol < 10 (Less than 10) mg/dL 11/17/18 Range/Units 18:05 WBC (4.3-11.1) K/mcL RBC (3.82-4.97) M/mcL Hgb (11.5-15.4) g/dL Hct (35.3-44.9) % MCV (83.0-100.0) fL MCH (28.0-33.3) pg MCHC (31.6-35.5) g/dL RDW (11.5-14.5) % Plt Count (140-400) K/mcL MPV (9.4-12.4) fL Immature Gran % (0-4) % Seg Neutrophils % % Lymphocytes % % Monocytes % % Eosinophils % % Basophils % % Neutrophils # (1.6-8.9) K/mcL Lymphocytes # (0.6-4.6) K/mcL Monocytes # (0.0-1.3) K/mcL Eosinophils # (0.0-0.6) K/mcL Basophils # (0.0-0.2) K/mcL Sodium (136-145) mEq/L Potassium (3.5-5.1) mEq/L Chloride (98-107) mEq/L Carbon Dioxide (23-29) mEq/L BUN (6-20) mg/dL Creatinine (0.60-1.20) mg/dL Est GFR ( Amer) (> 60) Est GFR (Non-Af Amer) (> 60) BUN/Creatinine Ratio (6-26) Glucose (70-105) mg/dL Calculated Osmolality (280-300) Calcium (8.6-10.3) mg/dL Urine Color (Yellow) Urine Clarity (Clear) Urine pH (5.0-8.0) pH Units Ur Specific [place] (1.010-1.025) Urine Protein (Neg-Trace) mg/dL Urine Glucose (UA) (Normal) mg/dL Urine Ketones (Negative) mg/dL Urine Blood (Negative) Urine Nitrite (Negative) Urine Bilirubin (Negative) Urine Urobilinogen (Normal) mg/dL Ur Leukocyte Esterase (Negative) Urine Microscopic RBC (0-3) per hpf Urine Microscopic WBC (0-3) per hpf Ur Squamous Epith Cells (None-Few) per lpf Urine Bacteria (None-Few) per hpf Hyaline Casts (None-Few) per lpf Salicylates (15.0-30.0) mg/dL Urine Opiates Screen Negative (Bwfliz=162) ng/mL Acetaminophen (10-20) mcg/mL Ur Barbiturates Screen Negative (Gxwzxz=406) ng/mL Ur Phencyclidine Scrn Negative (Cutoff=25) ng/mL Ur Amphetamines Screen Negative (Yrzdev=0393) ng/mL U Benzodiazepines Scrn Negative (Lfhkzb=612) ng/mL Urine Cocaine Screen Negative (Cutoff= 300) ng/mL U Marijuana (THC) Screen Negative (Cutoff = 50) ng/mL Ur Drug Screen Interp See Below Ethyl Alcohol (Less than 10) mg/dL
[2018-11-17 17:44] LABS: Basophils # 0.1 K/mcL (0.0-0.2); Basophils % 0.7 %; Eosinophils # 0.2 K/mcL (0.0-0.6); Eosinophils % 2.1 %; Hematocrit 33.2 % (35.3-44.9); Hemoglobin 9.8 g/dL (11.5-15.4); Immature Granulocytes % 0.5 % (0-4); Lymphocytes # 1.7 K/mcL (0.6-4.6); Lymphocytes % 18.6 %; Mean Corpuscular HGB Conc 29.5 g/dL (31.6-35.5); Mean Corpuscular Hemoglobin 20.7 pg (28.0-33.3); Mean Corpuscular Volume 70.2 fL (83.0-100.0); Mean Platelet Volume 10.6 fL (9.4-12.4); Monocytes # 0.6 K/mcL (0.0-1.3); Monocytes % 7.1 %; Neutrophils # 6.3 K/mcL (1.6-8.9); Platelet Count 325 K/mcL (140-400); Red Blood Count 4.73 M/mcL (3.82-4.97); Red Cell Distribution Width 16.5 % (11.5-14.5)
[2018-11-17 18:04] LABS: Acetaminophen < 10 mcg/mL (10-20); BUN/Creatinine Ratio 11 (6-26); Blood Urea Nitrogen 9 mg/dL (6-20); Calcium 9.1 mg/dL (8.6-10.3); Carbon Dioxide 26 mEq/L (23-29); Chloride 105 mEq/L (98-107); Ethanol < 10 mg/dL (Less than 10); Glucose 91 mg/dL (70-105); Osmolality,Calculated 286 (280-300); Potassium 3.8 mEq/L (3.5-5.1); Salicylate < 2.5 mg/dL (15.0-30.0); Sodium 139 mEq/L (136-145); eGFR For Non-African Americans > 60 (> 60)
[2018-11-17 18:18] LABS: Bilirubin,Urine Negative (Negative); Blood,Urine Negative (Negative); Clarity,Urine Clear (Clear); Color,Urine Yellow (Yellow); Glucose,Urine (UA) Normal (Normal); Ketones,Urine Negative (Negative); Leukocyte Esterase,Urine Trace (Negative); Nitrite,Urine Negative (Negative); PH,Urine 6.5 pH Units (5.0-8.0); Protein,Urine Trace mg/dL (Neg-Trace); Specific Gravity,Urine 1.008 (1.010-1.025); Urobilinogen,Urine Normal (Normal)
[2018-11-17 18:21] LABS: Bacteria,Urine None Seen per hpf (None-Few); Hyaline Casts,Urine None Seen per lpf (None-Few); Squamous Epithelial Cell,Urine Moderate per lpf (None-Few)
--- NOTE | 2018-11-17 18:28 | Emergency Department Note ---
Disposition Clinical Impression: Auditory hallucinations, Dissociative identity disorder Depression Qualifiers: Depression Type: unspecified Qualified Code(s): F32.9 - Major depressive disorder, single episode, unspecified Bipolar disorder Qualifiers: Active/Remission status: remission status unspecified Qualified Code(s): F31.9 - Bipolar disorder, unspecified Disposition: Still a Patient Referrals: NONE,PCP [Primary Care Provider] - Forms: ED Satisfaction Letter General Adult HPI - General Chief complaint: ED Psychiatric Symptoms Stated complaint: Psych Eval Time Seen by Provider: 11/17/18 17:01 Source: patient Limitations: no limitations - History of Present Illness Pain Scale: 1 - Related Data Home Medications Medication Instructions Recorded Confirmed Levothyroxine [Synthroid] 188 mcg PO 0630 08/06/18 08/06/18 Previous Rx's Medication Instructions Recorded Benztropine [Cogentin] 1 mg PO HS #30 tablet 08/10/18 Quetiapine Fumarate [Seroquel] 50 mg PO HS PRN #60 tablet 08/10/18 Topiramate [Topamax] 25 mg PO BID #60 tablet 08/10/18 risperiDONE [RisperDAL] 2 mg PO HS #60 tablet 08/10/18 Allergies Allergy/AdvReac Type Severity Reaction Status Date / Time Penicillins Allergy Rash Verified 11/14/18 21:20 NSAIDS (Non-Steroidal AdvReac Hives Verified 11/14/18 21:20 Anti-Inflamma Constitutional: Denies: fever Eyes: Denies: vision change ENT ED: Denies: congestion Cardiovascular: Denies: chest pain, palpitations Respiratory: Denies: cough Gastrointestinal: Denies: abdominal pain, nausea Genitourinary: Denies: urgency Musculoskeletal: Denies: back pain Integumentary: Denies: rash Neurological: Denies: headache Psychiatric: Reports: anxiety, depression, auditory hallucinations. Denies: s uicidal thoughts, homicidal thoughts, visual hallucinations Endocrine: Denies: fatigue Hematological/Lymphatic: Denies: easy bleeding Past Medical History - Past Medical History Medical history: Reports: thyroid disease, other Surgical history: Reports: non-contributory Psychiatric history: Reports: anxiety, bipolar, prior suicide attempt, previous psychiatric hospitalization PLEAT TAPER history: Reports: no PLEAT TAPER history - Social History Smoking Status: Current every day smoker Smokeless Tobacco Status: Yes Alcohol use: Reports: none Drug use: Reports: none Physical Exam - General Limitations: no limitations General appearance: alert, anxious, other (female pt sitting in bed comfortably, speaking in full sentences without respiratory distress) Course Vital Signs Temperature 98.8 F 11/17/18 16:44 Pulse Rate 86 11/17/18 16:44 Respiratory Rate 18 11/17/18 16:44 Blood Pressure 158/94 11/17/18 16:44 O2 Sat by Pulse Oximetry 96 11/17/18 16:44 Temperature 98.8 F 11/17/18 16:44 Pulse Rate 86 11/17/18 16:44 Respiratory Rate 18 11/17/18 16:44 Blood Pressure 158/94 11/17/18 16:44 O2 Sat by Pulse Oximetry 96 11/17/18 16:44 Oxygen Delivery Oxygen Delivery Room Air Medical Decision Making - Lab Data Result diagrams: 11/17/18 17:30 11/17/18 17:30 Lab Results 11/17/18 11/17/18 11/17/18 Range/Units 17:30 17:30 18:05 WBC 8.9 (4.3-11.1) K/mcL RBC 4.73 (3.82-4.97) M/mcL Hgb 9.8 L (11.5-15.4) g/dL Hct 33.2 L (35.3-44.9) % MCV 70.2 L (83.0-100.0) fL MCH 20.7 L (28.0-33.3) pg MCHC 29.5 L (31.6-35.5) g/dL RDW 16.5 H (11.5-14.5) % Plt Count 325 (140-400) K/mcL MPV 10.6 (9.4-12.4) fL Immature Gran % 0.5 (0-4) % Seg Neutrophils % 71.0 % Lymphocytes % 18.6 % Monocytes % 7.1 % Eosinophils % 2.1 % Basophils % 0.7 % Neutrophils # 6.3 (1.6-8.9) K/mcL Lymphocytes # 1.7 (0.6-4.6) K/mcL Monocytes # 0.6 (0.0-1.3) K/mcL Eosinophils # 0.2 (0.0-0.6) K/mcL Basophils # 0.1 (0.0-0.2) K/mcL Sodium 139 (136-145) mEq/L Potassium 3.8 (3.5-5.1) mEq/L Chloride 105 (98-107) mEq/L Carbon Dioxide 26 (23-29) mEq/L BUN 9 (6-20) mg/dL Creatinine 0.80 (0.60-1.20) mg/dL Est GFR ( Amer) > 60 (> 60) Est GFR (Non-Af Amer) > 60 (> 60) BUN/Creatinine Ratio 11 (6-26) Glucose 91 (70-105) mg/dL Calculated Osmolality 286 (280-300) Calcium 9.1 (8.6-10.3) mg/dL Urine Color Yellow (Yellow) Urine Clarity Clear (Clear) Urine pH 6.5 (5.0-8.0) pH Units Ur Specific [place] 1.008 L (1.010-1.025) Urine Protein Trace (Neg-Trace) mg/dL Urine Glucose (UA) Normal (Normal) mg/dL Urine Ketones Negative (Negative) mg/dL Urine Blood Negative (Negative) Urine Nitrite Negative (Negative) Urine Bilirubin Negative (Negative) Urine Urobilinogen Normal (Normal) mg/dL Ur Leukocyte Esterase Trace H (Negative) Urine Microscopic RBC 3-5 H (0-3) per hpf Urine Microscopic WBC 3-5 H (0-3) per hpf Ur Squamous Epith Cells Moderate H (None-Few) per lpf Urine Bacteria None Seen (None-Few) per hpf Hyaline Casts None Seen (None-Few) per lpf Salicylates < 2.5 L (15.0-30.0) mg/dL Acetaminophen < 10 L (10-20) mcg/mL Ur Drug Screen Interp Ethyl Alcohol < 10 (Less than 10) mg/dL 11/17/18 Range/Units 18:05 WBC (4.3-11.1) K/mcL RBC (3.82-4.97) M/mcL Hgb (11.5-15.4) g/dL Hct (35.3-44.9) % MCV (83.0-100.0) fL MCH (28.0-33.3) pg MCHC (31.6-35.5) g/dL RDW (11.5-14.5) % Plt Count (140-400) K/mcL MPV (9.4-12.4) fL Immature Gran % (0-4) % Seg Neutrophils % % Lymphocytes % % Monocytes % % Eosinophils % % Basophils % % Neutrophils # (1.6-8.9) K/mcL Lymphocytes # (0.6-4.6) K/mcL Monocytes # (0.0-1.3) K/mcL Eosinophils # (0.0-0.6) K/mcL Basophils # (0.0-0.2) K/mcL Sodium (136-145) mEq/L Potassium (3.5-5.1) mEq/L Chloride (98-107) mEq/L Carbon Dioxide (23-29) mEq/L BUN (6-20) mg/dL Creatinine (0.60-1.20) mg/dL Est GFR ( Amer) (> 60) Est GFR (Non-Af Amer) (> 60) BUN/Creatinine Ratio (6-26) Glucose (70-105) mg/dL Calculated Osmolality (280-300) Calcium (8.6-10.3) mg/dL Urine Color (Yellow) Urine Clarity (Clear) Urine pH (5.0-8.0) pH Units Ur Specific [place] (1.010-1.025) Urine Protein (Neg-Trace) mg/dL Urine Glucose (UA) (Normal) mg/dL Urine Ketones (Negative) mg/dL Urine Blood (Negative) Urine Nitrite (Negative) Urine Bilirubin (Negative) Urine Urobilinogen (Normal) mg/dL Ur Leukocyte Esterase (Negative) Urine Microscopic RBC (0-3) per hpf Urine Microscopic WBC (0-3) per hpf Ur Squamous Epith Cells (None-Few) per lpf Urine Bacteria (None-Few) per hpf Hyaline Casts (None-Few) per lpf Salicylates (15.0-30.0) mg/dL Acetaminophen (10-20) mcg/mL Ur Drug Screen Interp See Below Ethyl Alcohol (Less than 10) mg/dL Attestation Statement - Attestation Attestation: I examined this patient and my medical decision-making was reviewed with the Resident Physician. I agree with the documented findings, disposition and treatment plan as described except to the extent set forth below. 42 year old female presents to the ED wih complaitnts of SI and has dissociative personality disorder. Patinet is javing increased thoughts of hurting herself. Adrian is medically cleared. 1A consulted
[2018-11-17 18:36] LABS: Amphetamine Screen,Urine Negative ng/mL (Cutoff=1000); Barbiturate Screen,Urine Negative ng/mL (Cutoff=200); Benzodiazepines Screen,Urine Negative ng/mL (Cutoff=200); Cannabinoid Screen,Urine Negative ng/mL (Cutoff = 50); Cocaine Screen,Urine Negative ng/mL (Cutoff= 300); Opiate Screen,Urine Negative ng/mL (Cutoff=300); Phencyclidine Screen,Urine Negative ng/mL (Cutoff=25)
[2018-11-17] MEDS ORDERED: Mag Hydrox/Al Hydrox/Simeth 30 ML UDC PO PRN (21:23)
[2018-11-17] MEDS ORDERED: Haloperidol Lactate 5 MG/ML VIAL IM PRN (21:23)
[2018-11-17] MEDS ORDERED: *HR* LORazepam 1 MG TABLET PO PRN (21:23)
[2018-11-17] MEDS ORDERED: MOM Conc 10 ML UD.LIQ PO PRN (21:23)
[2018-11-17] MEDS ORDERED: hydrOXYzine pamoate 25 MG CAPSULE PO PRN (21:23)
[2018-11-17] MEDS ORDERED: Acetaminophen 325 MG TABLET PO PRN (21:23)
[2018-11-17] MEDS ORDERED: *HR* LORazepam 2 MG/ML VIAL IM PRN (21:23)
[2018-11-17] MEDS: risperiDONE 1 MG TABLET PO SCH (22:29)
[2018-11-17] MEDS: traZODone 50 MG TABLET PO PRN (22:29)
[2018-11-18] MEDS: risperiDONE 1 MG TABLET PO SCH ×2 (09:18→20:17)
[2018-11-18] MEDS: Nicotine 21 MG PATCH.TD24 TD SCH (09:18)
[2018-11-18 10:30] LABS: Hematocrit 32.8 % (35.3-44.9); Hemoglobin 9.6 g/dL (11.5-15.4); Mean Corpuscular HGB Conc 29.3 g/dL (31.6-35.5); Mean Corpuscular Hemoglobin 20.6 pg (28.0-33.3); Mean Corpuscular Volume 70.2 fL (83.0-100.0); Platelet Count 314 K/mcL (140-400); Red Blood Count 4.67 M/mcL (3.82-4.97); Red Cell Distribution Width 16.9 % (11.5-14.5)
[2018-11-18 10:47] LABS: Alanine Aminotransferase 9 Units/L (7-52); Albumin 4.1 g/dL (3.5-5.7); Albumin/Globulin Ratio 1.5 (1.1-2.2); Alkaline Phosphatase 52 Units/L (34-104); Aspartate Amino Transferase 12 Units/L (13-39); BUN/Creatinine Ratio 10 (6-26); Bilirubin,Total 0.3 mg/dL (0.3-1.0); Blood Urea Nitrogen 9 mg/dL (6-20); Calcium 8.8 mg/dL (8.6-10.3); Carbon Dioxide 24 mEq/L (23-29); Chloride 107 mEq/L (98-107); Globulin 2.7 g/dL (2.4-3.5); Glucose 135 mg/dL (70-105); Osmolality,Calculated 291 (280-300); Potassium 3.6 mEq/L (3.5-5.1); Sodium 140 mEq/L (136-145); Total Protein 6.8 g/dL (6.4-8.9); eGFR For Non-African Americans > 60 (> 60)
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
--- NOTE | 2018-11-18 17:34 | Electrocardiograph Report ---
[address] [address] Test Date: 2018-11-17 Pat Name: Briana Mcconnell Department: EXAM4 Room: 1A45 Gender: Station Chief: : 1975 Requested By: Alan Young Order Number: [id number] Reading MD: Altagracia Ying Measurements Intervals [place] Rate: 66 P: 44 VA: 146 QRS: 47 QRSD: 98 T: 32 QT: 404 QTc: 424 Interpretive Statements Sinus rhythm Low voltage, precordial leads Abnormal R-wave progression, early transition Electronically Signed On 11-18-2018 17:33:17 EST by Altagracia Ying
[2018-11-18] MEDS: traZODone 50 MG TABLET PO PRN (20:17)
[2018-11-19] MEDS: Nicotine 21 MG PATCH.TD24 TD SCH (08:07)
[2018-11-19] MEDS: risperiDONE 1 MG TABLET PO SCH (08:07)
[2018-11-19 08:10] VITALS: BP 132/84
--- NOTE | 2018-11-19 10:04 | Discharge Summary ---
Date of Encounter: 11/19/18 Time of Encounter: 10:01 Diagnosis - Discharge Diagnosis (1) Bipolar disorder Status: Acute Qualifiers: Active/Remission status: currently active Current bipolar episode type: manic Current episode severity: severe Psychotic features: with psychotic features Qualified Code(s): F31.2 - Bipolar disorder, current episode manic severe with psychotic features Medications - Discharge Medications Levothyroxine [Synthroid] 188 mcg PO 0630 08/06/18 [History] Benztropine [Cogentin] 1 mg PO HS #30 tablet 08/10/18 [Rx] Quetiapine Fumarate [Seroquel] 50 mg PO HS PRN #60 tablet 08/10/18 [Rx] Topiramate [Topamax] 25 mg PO BID #60 tablet 08/10/18 [Rx] risperiDONE [RisperDAL] 2 mg PO BID tablet 11/19/18 [Rx] Allergy/AdvReac Type Severity Reaction Status Date / Time Penicillins Allergy Rash Verified 11/14/18 21:20 NSAIDS (Non-Steroidal AdvReac Hives Verified 11/14/18 21:20 Anti-Inflamma Results Procedures and tests throughout hospitalization: Completed Lab Orders Category Date Time Status Acetaminophen Stat Lab 11/17/18 17:30 Completed Basic Metabolic Panel Stat Lab 11/17/18 17:30 Completed CMP [Comprehensive Metabolic Panel] AM 0400 Lab 11/18/18 09:59 Completed Complete Blood Count [HEME] Stat Lab 11/17/18 17:30 Completed Complete Blood Count w/o Diff [HEME] AM 0400 Lab 11/18/18 09:59 Completed Drug Screen, Urine [UCHEM] Stat Lab 11/17/18 18:05 Completed Ethanol Stat Lab 11/17/18 17:30 Completed Salicylate Stat Lab 11/17/18 17:30 Completed Urinalysis reflex Microscopic [URIN] Stat Lab 11/17/18 18:05 Completed Provider Date of admission: 11/17/18 20:40 Primary care physician: PCP NONE Discharging clinician: Reema Guzman Psychiatry Exam - Constitutional Vitals: Temp Pulse Resp BP Pulse Ox 97.0 F L 95 16 132/84 100 11/19/18 08:09 11/19/18 08:09 11/19/18 08:09 11/19/18 08:09 11/19/18 08:09 General appearance: age & developmentally appropriate, well-groomed, well- nourished - Musculoskeletal Gait: normal Station: relaxed Strength & Tone: normal for patient - Psychiatric Patient Orientation: Yes Person, Yes Time, Yes Place Level of alertness: Alert Behavior: calm, cooperative Psychomotor activity: Normal Eye Contact: Maintains Eye Contact Mood Description: Euthymic/stable Affect description: congruent with mood, full range Speech Volume: Normal Speech pattern: normal rate, normal rhythm, normal tone, fluent, spontaneous Language & Vocabulary: consistent with education Thought Process: Linear, Goal Oriented Thought Content: No Suicidal ideation, No Homicidal ideation, No Overt delusions Perceptual Disturbances: No Reacting to internal stimuli, Yes Auditory hallucinations, No Visual hallucinations Attention Span Ability: Capable of Focused Attention Memory Description: Grossly Intact Patient Reliability: Reliable Historian Fund of knowledge: Yes abstraction ability, Yes aware of current events Intelligence Estimate: Average Judgment: Fair Insight: Partial Hospital Course Hospital course: Ms. Mcconnell is a 42 year old female who presented to the ER secondary to voices in her head. Client described a 6y/o and 12y/o living inside of her. Hearing them is not a new symptom but client states their presence has been more intense lately. Denied SI/HI. On eval today client reports she feels much better. Still feels the presence of the little girls inside of her but states she slept and ate well and feels much more able to cope. Claims she had not been sleeping well or eating well at home but that just being in the hospital has resolved these issues. Discussed how she needed a mental health break and that, at times, the structure of the hospital is able to provide this. Client has a therapy appointment at 3pm today that she wants to attend. Would probably be of benefit to her to make this appointment. Client is not at risk to harm herself or others. Does not appear outwardly psychotic. Current symptoms likely related to personality issues more than a thought disorder. Previously diagnosed with Bipolar Disorder but current therapist treating her for DID. On eval today client is pleasant and cooperative. Thoughts are organized. No evidence of psychosis. Client denies SI/HI and is future oriented. Meds recently changed and she is tolerating increase in Risperdal without issue. Has community follow-up today. - Time Spent with Patient Total time spent providing and/or coordinating discharge services: Assessment and Plan - Patient/Caregiver Discharge Instructions Activity: resume usual activities as tolerated Diet: regular diet - Follow up Plan Follow up with: Singh Villaseñor [Outside] Functional capacity at discharge: independent ambulation Overall status at discharge: Stable Disposition: Home, Self-Care Quality - Multiple Antipsychotics Patient discharged on 2 or more antipsychotic medications: No Procedures - Procedures Procedures: Medication Management, Crisis Stabilization, Supportive Therapy, Group Therapy
== END 2018-11-19 10:45 | disposition home or self-care (01) | DRG 885 ==
LOC: EMEROOARM 16:36 → 1ANU 20:40
PROVIDERS: ADMIT General Practice; ATTEND General Practice